=== PATIENT | female | born 1940 | race Caucasian/White ===

== ENCOUNTER 2017-06-29 14:11 | Emergency (ER) | payer OTHER, BC ==
[~2017-06-29] VITALS: Ht 170.2 cm; Wt 100.1 kg
[~2017-06-29 14:11] MED LIST: ACTOS30 MG PO; ALPRAZOLAM0.25 M2 PO; Aspirin E.C. PO; Bactrim,Septra DS 80 PO; COLACE100 MG PO; DULOXETINE HCL30 MG PO; GABAPENTIN300 MG PO; GLUCOPHAGE500 MG PO; Glucophage PO; LEVEMIR FL100 UNITS/ SC; LEXAPRO5 MG PO; LIDOCAINE700 MG TD; LIPITOR10 MG PO; LOPRESSOR25 MG PO; LOPRESSOR50 MG PO; LOW DOSE ASPIRI81 M2 PO; METOPROLOL TART25 MG PO; MYLANTA 360 ML360 ML PO; NOVOLOG PE100 UNITS/ SC; Nizoral 2% Cream TP; PLAVIX75 MG PO; PROMETHAZINE HC25 M1 PO; Plavix PO; TIZANIDINE HCL2 MG PO; TOPROL XL6.25 MG PO; TRAMADOL HCL50 MG PO; TYLENOL REGULA325 MG PO; Toprol XL PO; Xanax PO; ZESTRIL10 MG PO; Zestril,Prinivil PO; Zocor PO; cholesterol med PO
[2017-06-29 15:19] LABS: BASOPHIL (%) 0.6 % (0-1); BASOPHIL COUNT 0.1 K/uL (0-0.1); EOSINOPHIL COUNT 0.1 K/uL (0-0.3); HEMATOCRIT 41.5 % (36.0-46.0); HEMOGLOBIN 14.2 G/DL (11.9-15.5); IMMATURE GRANULOCYTE (%) 0.4 % (0.0-0.7); LYMPHOCYTE (%) 40.7 % (15-42); LYMPHOCYTE COUNT 4.6 K/uL (1.0-2.8); MCH 30.4 PG (29.0-34.0); MCHC 34.2 G/DL (30.0-36.0); MCV 88.9 FL (83-99); MONOCYTE (%) 7.6 % (3-12); MONOCYTE COUNT 0.9 K/uL (0-0.8); NEUTROPHIL (%) 49.7 % (45-76); NEUTROPHIL COUNT 5.7 K/uL (1.8-6.4); PLATELET COUNT 239 K/uL (156-360); RBC DIS.WIDTH-CV 12.6 % (11.8-14.6); RBC DIS.WIDTH-SD 40.9 % (39-53); RED BLOOD COUNT 4.67 M/uL (3.80-5.20); WHITE BLOOD COUNT 11.4 K/uL (4.1-10.2)
[2017-06-29 15:30] LABS: ALBUMIN 3.5 g/dL (3.2-4.8); CHLORIDE 105 mEq/L (99-109); POTASSIUM 4.4 mEq/L (3.7-5.4); SODIUM 138 mEq/L (136-147)
[2017-06-29 15:32] LABS: GLUCOSE 208 mg/dL (70-99); TOTAL PROTEIN 7.1 g/dL (6.4-8.3)
[2017-06-29 15:34] LABS: TOTAL BILIRUBIN 0.3 mg/dL (0.0-1.0)
[2017-06-29 15:36] LABS: ALKALINE PHOSPHATASE 50 IU/L (3-129); CREATININE 1.1 mg/dL (0.6-1.3); GFR ESTIMATE (CALCULATED) 51 mL/min/
[2017-06-29 15:37] LABS: UREA NITROGEN (BUN) 15 mg/dL (9-23)
[2017-06-29 15:38] LABS: AST (GOT) 31 IU/L (2-34)
[2017-06-29 15:39] LABS: ALT (GPT) 32 IU/L (3-49); LIPASE 30 U/L (1.0-51.0)
[2017-06-29 17:24] LABS: APPEARANCE SL.HAZY ((CLEAR)); BILIRUBIN NEGATIVE; BLOOD NEGATIVE; COLOR YELLOW ((YELLOW)); GLUCOSE (STRIP) NEGATIVE; KETONES NEGATIVE; LEUKOCYTES MODERATE; NITRITE NEGATIVE; PROTEIN (STRIP) 30; SPECIFIC GRAVITY 1.017 (1.000-1.030); UROBILINOGEN 0.2 MG/DL (0.2-1.0)
[2017-06-29 17:44] LABS: BACTERIA RARE /HPF; EPITHELIAL CELLS RARE /HPF; HYALINE CASTS 0-5 /LPF; MUCUS NONE SEEN /LPF; RED BLOOD CELLS 0-5 /HPF (0-5); UCUL ADDED? YES; WHITE BLOOD CELLS 20-30 /HPF (0-5)
[2017-06-29] MEDS ORDERED: KEFLEX500 MG PO (18:11)
[2017-06-29] MEDS ORDERED: MIRALAX17 GM PO (18:12)
[2017-06-29 21:24] VITALS: BP 114/69
== END 2017-06-29 21:24 | disposition home or self-care (01) ==
LOC: EME 14:11
PROVIDERS: Emergency Medicine
DX: N39.0 Urinary tract infection, site not specified (principal); K59.00 Constipation, unspecified; E11.9 Type 2 diabetes mellitus without complications; Z79.84 Long term (current) use of oral hypoglycemic drugs; Z87.440 Personal history of urinary (tract) infections; I10 Essential (primary) hypertension; F32.9 Major depressive disorder, single episode, unspecified; F41.9 Anxiety disorder, unspecified; Z86.73 Personal history of transient ischemic attack (TIA), and cerebral infarction without residual deficits; Z88.2 Allergy status to sulfonamides
CPT/HCPCS: 74177; 80053; 81003; 83605; 83690; 85025; 87086 GA; 99281; 99285; J0696; J2405; J7030